=== PATIENT | male | born 1980 | race American Indian/Alaskan Native ===

== ENCOUNTER 2020-09-18 22:28 | Emergency (ER) | payer SELFPAY ==
[2020-09-18 22:55] VITALS: BP 165/106
[2020-09-18] MEDS ORDERED: SODIUM CHLORIDE 0.9% 1000 ML 1,000 ML IV ONE (23:23)
--- NOTE | 2020-09-18 23:38 | Emergency Department Report ---
ED Alcohol HPI - General Chief Complaint: Medical Clearance Stated Complaint: AMS ETOH Time Seen by Provider: 09/18/20 23:22 Source: EMS Mode of arrival: Wheelchair Limitations: No Limitations - History of Present Illness Initial Comments: Patient is a 40-year-old male that presents emergency room for alcohol intoxication. Patient brought in by EMS. Patient states he was in a car passed out while in his car. Patient denies any pain. Patient denies chest pain. Patient states he was brought in by EMS. Report received from EMS. EMS states that the patient was in his car and passed out and had to break his window in order to wake him up. Patient was then given IV fluids and began to wake up. Patient states he is feeling fine. Patient is amatory. Patient agreed to have labs done. Patient resting comfortably in bed. Patient denies pain. Patient denies dizziness. Patient is not sure when his last drink was. Patient denies recent travel. Patient denies recent international travel. Patient denies exposure to the novel coronavirus. Patient denies sick contacts. Patient denies fever and chills. Patient denies cough. Patient denies diarrhea. Patient denies coming in contact with anybody with symptoms of the novel coronavirus. MD Complaint: alcohol intoxication Last Drink: unknown Chronic Alcohol Use: Yes Previous Visits for Alcohol Intoxication?: No Recent Trauma: No Associated Symptoms: denies other symptoms. denies: nausea, vomiting, syncope, seizure, abdominal pain, hematemesis, melena, depression, suicidality Treatments Prior to Arrival: none - Related Data Allergies Allergy/AdvReac Type Severity Reaction Status Date / Time No Known Allergies Allergy Unverified 09/18/20 22:54 ED Review of Systems ROS: Stated complaint: AMS ETOH Other details as noted in HPI Constitutional: denies: chills, fever Eyes: denies: eye pain, eye discharge, vision change ENT: denies: ear pain, throat pain Respiratory: denies: cough, shortness of breath, wheezing Cardiovascular: denies: chest pain, palpitations Endocrine: no symptoms reported Gastrointestinal: denies: abdominal pain, nausea, diarrhea Genitourinary: denies: urgency, dysuria Musculoskeletal: denies: back pain, joint swelling, arthralgia Skin: denies: rash, lesions Neurological: denies: headache, weakness, paresthesias Psychiatric: denies: anxiety, depression, auditory hallucinations, visual hallucinations, homicidal thoughts, suicidal thoughts Hematological/Lymphatic: denies: easy bleeding, easy bruising ED Past Medical Hx - Past Medical History Previous Medical History?: No - Surgical History Past Surgical History?: No - Family History Family history: no significant - Social History Smoking Status: Never Smoker Substance Use Type: Alcohol ED Physical Exam - General Limitations: No Limitations General appearance: alert, in no apparent distress - Head Head exam: Present: atraumatic, normocephalic - Eye Eye exam: Present: normal appearance - ENT ENT exam: Present: mucous membranes moist - Neck Neck exam: Present: normal inspection - Respiratory Respiratory exam: Present: normal lung sounds bilaterally. Absent: respiratory distress - Cardiovascular Cardiovascular Exam: Present: regular rate, normal rhythm. Absent: systolic murmur, diastolic murmur, rubs, gallop - GI/Abdominal GI/Abdominal exam: Present: soft, normal bowel sounds - Rectal Rectal exam: Present: deferred - Extremities Exam Extremities exam: Present: normal inspection - Back Exam Back exam: Present: normal inspection - Neurological Exam Neurological exam: Present: alert, oriented X3 - Psychiatric Psychiatric exam: Present: normal affect, normal mood - Skin Skin exam: Present: warm, dry, intact, normal color. Absent: rash ED Course Vital Signs 09/18/20 22:54 Temperature 98.2 F Pulse Rate 119 H Respiratory 18 Rate Blood Pressure 165/106 [Right] O2 Sat by Pulse 94 Oximetry - Reevaluation(s) Reevaluation #1: Patient alert and oriented x4. Patient answering questions appropriately. Patient does not recall how much he drank. 09/19/20 00:01 Reevaluation #2: Patient states he would like to leave. Patient states he will call and yrn lucero pick him up. Patient ambulatory without difficulty. 09/19/20 02:01 Reevaluation #3: Patient has a family member here to take responsibility for the patient. Patient's family at bedside. Patient family is his brother. Patient states he wants to leave the hospital. Patient states he is ready to go. Patient states he is feeling fine. Patient states he wants to leave. I discussed the risk of leaving the hospital AGAINST MEDICAL ADVICE. Patient and brother voiced understanding of risk. Brother signed AMA form. Even though the patient is leaving as of eyes, a formal discharge to be given to the patient and the patient's brother. I discussed all results and clinical findings with patient and brother. I discussed plan of care with patient and brother. Patient and brother given discharge instructions. Patient and brother voiced understanding of discharge instructions. 09/19/20 03:01 ED Medical Decision Making - Lab Data Result diagrams: 09/18/20 23:29 09/18/20 23:29 - Medical Decision Making Patient is a 40-year-old male who presents emergency room for a syncopal episode secondary to acute alcohol intoxication. Patient brought in by EMS. Patient alert and oriented x3 upon initial evaluation. Patient given fluids in the ER. Patient had labs done which confirmed the patient is intoxicated with alcohol. Patient monitored for multiple hours. Patient called his family to come pick him up. Patient did not want to wait in the ER any longer and the patient's brother signed him out AGAINST MEDICAL ADVICE. I recommend the patient have r epeat alcohol level and continue to monitor him and the patient and the brother refused. I discussed the risk with the brother and the patient. Both the patient and the brother voiced understanding of the risk. Patient's brother signed AMA form. Patient left the hospital AGAINST MEDICAL ADVICE under the care of his brother. The patient's brother took responsibility for the patient as the patient is still considered intoxicated. Patient ambulatory in ER. Patient answering questions appropriately prior to discharge. Patient left AGAINST MEDICAL ADVICE, the patient was given a formal discharge. Critical care time documented due to the multiple reassessments, prolonged time at the bedside, interpretation of diagnostics and labs. - Differential Diagnosis EtOH, alcohol abuse, syncopal episode Critical Care Time: Yes Critical care time in (mins) excluding proc time.: 35 Critical care attestation.: If time is entered above; I have spent that time in minutes in the direct care of this critically ill patient, excluding procedure time. Critical Care Time: 35 MINUTES ED Disposition Clinical Impression: Altered mental status Qualifiers: Altered mental status type: unspecified Qualified Code(s): R41.82 - Altered mental status, unspecified Acute alcohol intoxication Qualifiers: Complication of substance-induced condition: uncomplicated Qualified Code(s): F10.920 - Alcohol use, unspecified with intoxication, uncomplicated Syncope Qualifiers: Syncope type: unspecified Qualified Code(s): R55 - Syncope and collapse Disposition: DC-07 LEFT AGAINST MED ADVICE Is pt being admited?: No Does the pt Need Aspirin: No Condition: Critical Instructions: Binge-Drinking Information, Adult, Alcohol Intoxication, [id number], Alcohol Abuse and Nutrition, Syncope (ED) Additional Instructions: Patient to follow-up with primary care in 2 to 3 days. Patient to find a rehab center. Patient to decrease alcohol intake. Patient to avoid driving while drinking. Patient to rest. Patient to increase water. Patient to take Tylenol or ibuprofen as needed for pain. Patient to return to the ER if condition worsens, changes or new symptoms arise. Referrals: PRIMARY CARE, [Primary Care Provider] - 2-3 Days Forms: AMA Form Time of Disposition: 03:11
[2020-09-18 23:51] LABS: Basophils # (Auto) 0.1 K/mm3 (0.0-0.1); Basophils % (Auto) 0.7 % (0.0-1.8); Eosinophils % (Auto) 0.7 % (0.0-4.3); Hematocrit 42.2 % (35.5-45.6); Hemoglobin 14.1 gm/dl (11.8-15.2); Lymphocytes # (Auto) 1.6 K/mm3 (1.2-5.4); Lymphocytes % (Auto) 21.8 % (13.4-35.0); Mean Corpuscular HGB Conc 33 % (32-34); Mean Corpuscular Volume 92 fl (84-94); Monocytes # (Auto) 0.6 K/mm3 (0.0-0.8); Monocytes % (Auto) 8.9 % (0.0-7.3); Platelet Count 205 K/mm3 (140-440); Red Cell Distribution Width 16.7 % (13.2-15.2)
[2020-09-19 00:13] LABS: Alanine Aminotransferase 67 units/L (7-56); Albumin 5.3 g/dL (3.9-5); Blood Urea Nitrogen 8 mg/dL (9-20); Calcium 9.3 mg/dL (8.4-10.2); Hemolysis Index 8
[2020-09-19 00:19] LABS: BUN/Creatinine Ratio 11
[2020-09-19] MEDS ORDERED: THIAMINE 100 MG, FOLIC ACID 1 MG, MULTIPLE VITAMIN INJ, ADULT 10 ML in SODIUM CHLORIDE ... IV ONE (00:45)
== END 2020-09-19 03:32 | disposition left against medical advice (07) ==
LOC: ED 22:28
DX: R41.82 Altered mental status, unspecified (principal); F10.129 Alcohol abuse with intoxication, unspecified; R55 Syncope and collapse
CPT/HCPCS: 36415; 80053; 85025; 96365; 96366; 99283; J3411; J7030; 80320; G0480